=== PATIENT | female | born 1965 | race Caucasian/White ===

== ENCOUNTER 2017-11-17 18:37 | Emergency (ER) | payer MEDICAID ==
[2017-11-17 21:34] VITALS: BP 154/78
== END 2017-11-17 21:34 | disposition home or self-care (01) ==
LOC: ED 18:37
DX: B34.9 Viral infection, unspecified (principal)
CPT/HCPCS: J1885; J7613

== ENCOUNTER 2018-10-01 11:35 | Emergency (ER) | payer MEDICAID ==
[~2018-10-01] VITALS: Ht 162.6 cm; Wt 92.1 kg
[2018-10-01 11:40] VITALS: BP 171/112; Ht 162.6 cm; Wt 92.1 kg
== END 2018-10-01 13:42 | disposition home or self-care (01) ==
LOC: ED 11:35
DX: J20.9 Acute bronchitis, unspecified (principal); M79.10 Myalgia, unspecified site
CPT/HCPCS: Q0092

== ENCOUNTER 2019-09-02 08:45 | Emergency (ER) | payer MEDICAID ==
[~2019-09-02] VITALS: Ht 167.6 cm; Wt 94.8 kg
[2019-09-02 08:59] VITALS: Ht 167.6 cm; Wt 94.8 kg
[2019-09-02 09:54] LABS: BASOPHIL % 0.5 % (0-2); PLATELET COUNT 358 x10^3mcL (130-400); RED CELL DISTRIBUTION WIDTH 13.8 % (11.5-14.5)
[2019-09-02 10:00] LABS: CARBON DIOXIDE 28.4 mmol/L (21-32); CHLORIDE SERUM 106 mmol/L (98-107); CREATININE SERUM 0.7 mg/dL (0.6-1.0); GFR1 > 60 mL/min; GLUCOSE SERUM 101 mg/dL (74-106); POTASSIUM SERUM 4.7 mmol/L (3.5-5.1); SODIUM SERUM 140 mmol/L (136-145)
[2019-09-02 10:05] LABS: ALBUMIN 3.6 g/dL (3.4-5.0); ALKALINE PHOSPHATASE 92 U/L (46-116); ALT/SGPT 26 U/L (14-59); AMYLASE 35 U/L (25-115); AST/SGOT 17 U/L (15-37); BILIRUBIN TOTAL 0.3 mg/dL (0.20-1.00); LIPASE 132 IU/L (73-393)
[2019-09-02 10:08] LABS: TOTAL PROTEIN, SERUM 8.4 g/dL (6.4-8.2)
[2019-09-02 11:04] VITALS: BP 123/80
== END 2019-09-02 11:04 | disposition home or self-care (01) ==
LOC: ED 08:45
PROVIDERS: Emergency Medicine
DX: R10.816 Epigastric abdominal tenderness (principal); R10.811 Right upper quadrant abdominal tenderness; R11.2 Nausea with vomiting, unspecified
CPT/HCPCS: J1885